=== PATIENT | female | born 1955 | race American Indian/Alaskan Native ===

== ENCOUNTER 2018-07-23 19:28 | Inpatient (IN) | payer MEDICARE, MEDICAID ==
[2018-07-23 19:58] VITALS: BMI 31.1
[2018-07-23 21:27] LABS: BASO % 0.3 % (0.0-2.0); EOS # 0.1 K/uL (0.0-0.7); EOS % 3.3 % (0.0-4.0); HEMOGLOBIN 10.4 g/dL (11.0-16.0); LYMPH # 1.4 K/uL (1.0-4.3); LYMPH % 47.6 % (20.0-40.0); MEAN CORPUSCULAR HEMOGLOBIN 28.4 pg (27.0-31.0); MEAN PLATELET VOLUME 8.6 fL (7.2-11.7); MONO # 0.4 K/uL (0.0-0.8); MONO % 12.8 % (0.0-10.0); NEUT # 1.1 K/uL (1.8-7.0); NRBC % 0.1 % (0.0-2.0); RBC 3.67 Mil/uL (3.80-5.20)
--- NOTE | 2018-07-23 21:28 | C.PDOC ---
History Of Present Illness 63 year old female presents prescreened for xanax detox. Patient has been on a methadone program for 42 years and has been on xanax for many years, prescribed by her doctor to help her deal with the grief of her son's but states her doctor lost his license so she wants to detox. Denies any use of illicit drugs. Time Seen by Provider: 07/23/18 20:51 Chief Complaint (Nursing): Substance Abuse History Per: Patient History/Exam Limitations: no limitations Onset/Duration Of Symptoms: Hrs Current Symptoms Are (Timing): Still Present Recent travel outside of the [place]: No Past Medical History Reviewed: Historical Data, Nursing Documentation, Vital Signs Vital Signs: Last Vital Signs Temp 98.1 F 07/23/18 19:58 Pulse 62 07/23/18 19:58 Resp 19 07/23/18 19:58 BP 194/96 H 07/23/18 19:58 Pulse Ox 97 07/23/18 19:58 Primary Care Provider: Non [facility] Provider, - Medical History PMH: CHF, COPD, Dementia, HTN, Hyperlipidemia, Seizures Surgical History: Cholecystectomy Family History: States: Unknown Family Hx - Social History Hx Alcohol Use: No Hx Substance Use: Yes (xanax) - Immunization History Hx Tetanus Toxoid Vaccination: No Hx Influenza Vaccination: No Hx Pneumococcal Vaccination: No Review Of Systems Constitutional: Negative for: Fever, Chills Cardiovascular: Negative for: Chest Pain, Palpitations Respiratory: Negative for: Cough, Shortness of Breath Gastrointestinal: Negative for: Nausea, Vomiting Neurological: Negative for: Weakness, Numbness Physical Exam - Physical Exam Appears: Non-toxic Skin: Normal Color, Warm Head: Atraumatic, Normacephalic Eye(s): bilateral: Normal Inspection Oral Mucosa: Moist Neck: Normal, Supple Chest: Symmetrical, No Tenderness Cardiovascular: Rhythm Regular Respiratory: Normal Breath Sounds, No Rales, No Rhonchi, No Wheezing Gastrointestinal/Abdominal: Soft, No Tenderness Neurological/Psych: Oriented x3, Normal Speech ED Course And Treatment - Laboratory Results Result Diagrams: 07/23/18 21:20 07/23/18 21:20 Lab Interpretation: Abnormal (WBC 3.0, Hgb 10.4, plt 95, K+ 2.9, BUN 32, Cr 2.0, ETOH <10 UDS + benzos and methadone.) O2 Sat by Pulse Oximetry: 97 (Room air) Pulse Ox Interpretation: Normal Progress Note: Blood work and urinalysis ordered. Low K+ treated with oral Kdur. Patient is medically cleared for detox admission Reevaluation Time: 23:29 Reassessment Condition: Unchanged Disposition - Disposition Disposition: HOSPITALIZED Disposition Time: 23:47 Condition: STABLE - POA Present On Arrival: None - Clinical Impression Clinical Impression: Benzodiazepine dependence - Scribe Statement The provider has reviewed the documentation as recorded by the Scribdaniel Stokes All medical record entries made by the Beckyibdaniel were at my direction and personally dictated by me. I have reviewed the chart and agree that the record accurately reflects my personal performance of the history, physical exam, medical decision making, and the department course for this patient. I have also personally directed, reviewed, and agree with the discharge instructions and disposition.
[2018-07-23 21:41] LABS: ALB/GLOB RATIO 0.9 (1.0-2.1); ALBUMIN 3.2 g/dL (3.5-5.0); ALT/SGPT 61 U/L (9-52); AST/SGOT 124 U/L (14-36); BLOOD UREA NITROGEN 32 mg/dL (7-17); CALCIUM 8.3 mg/dl (8.6-10.4); GFR NON-AFRICAN AMERICAN 25
[2018-07-23] MEDS ORDERED: Potassium Chloride 20 mEq ER Tab PO STA (22:06)
[2018-07-23] MEDS ORDERED: Potassium Chloride 20 mEq ER Tab PO ONE (22:43)
[2018-07-23 23:38] LABS: BARBITURATES, UR NEGATIVE (NEGATIVE); OPIATES, UR NEGATIVE (NEGATIVE); PHENCYCLIDINE, UR NEGATIVE (NEGATIVE)
[2018-07-23 23:55] LABS: BENZODIAZEPINES, UR POSITIVE (NEGATIVE)
[2018-07-24 01:09] LABS: SQUAMOUS EPITHIAL 1 /hpf (0-5); URINE BILIRUBIN NEGATIVE (NEGATIVE); URINE BLOOD TRACE (NEGATIVE); URINE CLARITY Clear (Clear); URINE COLOR YELLOW (YELLOW); URINE GLUCOSE (UA) NEGATIVE (Normal); URINE LEUKOCYTE ESTERASE TRACE Leu/uL (Negative); URINE PROTEIN 2+ mg/dL (NEGATIVE); URINE UROBILINOGEN Normal mg/dL (0.2-1.0)
--- NOTE | 2018-07-24 02:07 | PCM.BM ---
<Rui Watts - Last Filed: 07/24/18 02:04> Treatment Plan Problems - Problems identified on initial assessmt Abnormal Vital Sign Date Initiated: 07/24/18 Time Initiated: 03:00 Assessment reference: NA Status: Active Ineffective Coping Date Initiated: 07/24/18 Time Initiated: 03:00 Assessment reference: NA Status: Active Low Motivation to Change Date Initiated: 07/24/18 Time Initiated: 03:00 Assessment reference: NA Status: Active Treatment assets and liabiliti Patient Assests: cooperative, ADL independent, good support system, negotiates basic needs Patient Liabilities: substance abuse - Milieu Protocol Maintain good personal hygiene: daily Encourage regular showers, daily Remind patient to perform daily oral care, daily Assist patient to perform ADL's Conduct patient checks and document Observation sheet: Q15 minutes Maintain personal safety: every shift Educate patient to report safety concerns to staff, every shift Monitor environment for contraband/sharps Medication safety: Monitor for expected outcome, potential side effects: every shift, Assess barriers to learning: every shift, Assess readiness for medication education: every shift <Jeremie Gomez - Last Filed: 07/24/18 13:37> - Diagnosis (1) Benzodiazepine dependence Status: Acute Interventions: 07/24/18 13:37 * Assess 7x/week regarding severity of withdrawal * Educate regarding risks, benefits, side effects and alternatives of medications * Use Motivational Interviewing for abstinence * Use CBT for relapse prevention * Medication management for withdrawal symptoms * Encourage medication assisted treatment *
[2018-07-24] MEDS: NIFEdipine 90 mg ER Tab PO SCH (11:00)
--- NOTE | 2018-07-24 13:04 | PCM.PSYCH ---
Initial Psychiatric Evaluation - Initial Psychiatric Evaluation Type of Admission: Voluntary Legal Status: Capacity Chief Complaint (in patient's own words): "I am sick" History of Present Illness and Precipitating Events: She is seen, chart reviewed, case discussed. Patient is a 63 year-old, female, who is single, unemployed, and lives alone in a Rooming House in [place], [place]. She has one living child, a daughter who she has a good relationship with, and six grandchildren. Her only two sons have both , one from a bullet wound in 2010 and one from a suspected overdose of fentanyl in December 2017. She presents to [facility] in order to detox from benzodiazepines. She admits to using Xanax for the past 40 years and currently takes approximately 6 mg daily. She states that during her 30s she was introduced to benzodiazepines, using Valium, Ativan, and Xanax. The last time she used was yesterday, when she took Klonopin from a friend in the workers compensation claims supervisor. She had been prescribed Xanax for her anxiety but has been obtaining it illicitly for the past year. She reports that she has a personal history of withdrawal seizures and frequently experiences seizures during her sleep. Her last seizure was Sunday07/17/18. She was given dilantin and at one point phenobarb but she is non-compliant due to fear of side-effects. Currently her CIWA is 1+1+1+4+0+1+2+3+1+1 = 15 and she will be started on ativan taper. 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 She has been taking methadone for the past 40 years, and is currently on 80mg daily according to her clinic, [facility] in [place], [place]. She is a current every day smoker, smoking up to 1 ppd. She denies any alcohol use or the use of any other illicit substances. She admits to opioid overdoses in the past, with the most recent episode in the year 1999. She reports one prior detox treatment over 20 years ago at [facility], but states that she has not been sober for any extended period of time. She is interested in going to an inpatient rehab after her detox is complete, if she can. She feels very depressed but not suicidal. Has severe anxiety as well. Past Psychiatric History: depression and anxiety, she had one suicide attempt by mixing drugs and Xanax Family Psych History: All family members but mother had issues with addiction. Past Medical History: hypertension, COPD, multiple sclerosis, seizures, renal failure 2/2 HTN, gout, overactive bladder Past Surgical History: denies Current Medications: Active Medications Generic Name Dose Route Start Last Admin Trade Name Freq PRN Reason Stop Dose Admin Aspirin 81 mg 07/24/18 10:15 07/24/18 11:28 Aspirin Chewable PO 81 mg DAILY LELA Administration Clonidine HCl 0.1 mg 07/24/18 03:59 Catapres PO Q6 PRN s/sx of withdrawal cows=5 Clonidine HCl 0.3 mg 07/24/18 10:15 07/24/18 11:22 Catapres PO 0.3 mg BID LELA Administration Dicyclomine HCl 10 mg 07/24/18 04:01 Bentyl PO Q6 PRN Muscle spasm Hydralazine HCl 25 mg 07/24/18 10:15 07/24/18 11:20 Apresoline PO 25 mg DAILY LELA Administration Hydroxyzine HCl 25 mg 07/24/18 04:03 Atarax PO Q6 PRN Anxiety Lisinopril 10 mg 07/24/18 10:15 07/24/18 11:28 Zestril PO 10 mg DAILY LELA Administration Lorazepam 1 mg 07/24/18 10:35 Ativan PO Q4H PRN Symptoms of alcohol withdrawl Lorazepam 2 mg 07/24/18 12:00 07/24/18 12:15 Ativan PO 07/29/18 11:59 2 mg Q8H LELA Administration Taper Memantine 5 mg 07/24/18 10:15 07/24/18 11:23 Namenda PO 5 mg DAILY LELA Administration Methadone HCl 80 mg 07/24/18 10:00 07/24/18 11:21 Methadone PO 80 mg DAILY LELA Administration Nifedipine 90 mg 07/24/18 10:15 07/24/18 11:00 Procardia Xl PO 90 mg DAILY LELA Administration Oxybutynin Chloride 5 mg 07/24/18 14:00 Ditropan Xl PO QID LELA Phenytoin Sodium 100 mg 07/24/18 10:00 07/24/18 11:22 Dilantin PO 100 mg TID LELA Administration Past Psychiatric History - Past Psychiatric History Previous Treatment History: Intensive Outpatient Pertinent Medical Hx (Current Medical&Sleep Prob, Allergies): Allergies Allergy/AdvReac Type Severity Reaction Status Date / Time Penicillins Allergy Verified 07/23/18 19:57 Albuterol HFA [Ventolin HFA 90 mcg/actuation (8 g)] 2 puff IH Q4 PRN 07/23/18 Allopurinol [Zyloprim] 100 mg PO BID 07/23/18 Aspirin [Aspirin Chewable] 81 mg PO DAILY 07/23/18 Azelastine HCl 137 mcg NS BID PRN 07/23/18 Azithromycin [Zithromax] 250 mg PO DAILY 07/23/18 Cholecalciferol [Vitamin D] 5,000 iu PO DAILY 07/23/18 Docusate [Colace] 100 mg PO DAILY 07/23/18 Escitalopram [Lexapro] 20 mg PO DAILY 07/23/18 Fluticasone Propion/Salmeterol [Fluticasone-Salmeterol 250-50] 1 each IH BID 07/23/18 Insulin Detemir [Levemir] 100 unit SC HS 07/23/18 Lisinopril [Zestril] 10 mg PO DAILY 07/23/18 Loperamide [Loperamide HCl] 2 mg PO BID PRN 07/23/18 Magnesium Oxide [Magnesium] 400 mg PO BID 07/23/18 Meloxicam [Mobic] 15 mg PO DAILY 07/23/18 Memantine [Namenda] 5 mg PO DAILY 07/23/18 Methylprednisolone 4 mg PO DAILY 07/23/18 NIFEdipine ER [Procardia XL] 90 mg PO DAILY 07/23/18 Ondansetron [Zofran] 4 mg PO Q8 PRN 07/23/18 Oxybutynin Chloride [Ditropan Xl] 5 mg PO QID 07/23/18 Potassium Chloride 20 meq PO DAILY 07/23/18 cloNIDine [Catapres] 0.3 mg PO TID 07/23/18 hydrALAZINE [hydralazine Hydrochloride] 25 mg PO DAILY 07/23/18 hydrOXYzine Pamoate [Vistaril] 50 mg PO Q8 PRN 07/23/18 oxyCODONE/Acetaminophen [Percocet 5/325 mg Tab] 1 tab PO Q4 PRN 07/23/18 Review of Systems - Psychiatric Psychiatric: Abnormal Sleep Pattern, Anhedonia, Anxiety, Behavioral Changes, Change in Appetite, Confusion, Depression, Difficulty Concentrating, Hopelessness, Irritability, Mood Swings, Panic Attacks. absent: Hallucinations, Homicidal Ideation, Paranoia, Suicidal Ideation Mental Status Examination - Personal Presentation Personal Presentation: Looks stated age - Affect Affect: Constricted - Motor Activity Motor Activity: Other (restless) - Reliability in Providing Information Reliability in Providing Information: Fair - Speech Speech: Other - Mood Mood: Depressed, Anxious - Formal Thought Process Formal Thought Process: No Impairment - Cognitive Functions Orientation: Person, Place, Situation, Time Sensorium: Alert Attention/Concentration: Easily distracted Abstract Thinking: [place] Estimate of Intelligence: Below average Judgement: Intact, as evidence by: Insight regarding need for hospitalization Memory: Recent intact, as evidence by: Ability to recall events of the day, Remote impaired as evidenced by: Inability to recall sig life events - Risk Risk: Seizure, Withdrawal, Diminished functioning - Strength & Assets Inventory Strength & Assets Inventory: Cooperative DSM 5 DX - DSM 5 DSM 5 Diagnosis: 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 Attend groups and activities Supportive therapy and psychoeducation [place] for abstinence CBT for relapse prevention Encourage MAT Refer to rehab or IOP, and self-help groups Teach healthy lifestyle methods, i.e. diet, exercise, meditation Smoking cessation with [place] Nicotine patch if needed 34 min Projected ELOS: 6 days - Smoking Cessation Smoking Cessation Initiated: Yes
[2018-07-24 18:06] LABS: BASO % 0.5 % (0.0-2.0); EOS # 0.1 K/uL (0.0-0.7); EOS % 2.7 % (0.0-4.0); HEMOGLOBIN 10.2 g/dL (11.0-16.0); LYMPH # 1.3 K/uL (1.0-4.3); LYMPH % 48.4 % (20.0-40.0); MEAN CORPUSCULAR HEMOGLOBIN 28.1 pg (27.0-31.0); MEAN CORPUSCULAR HGB CONC 33.5 g/dL (33.0-37.0); MONO # 0.3 K/uL (0.0-0.8); MONO % 12.7 % (0.0-10.0); NEUT % 35.7 % (50.0-75.0); NRBC % 0.5 % (0.0-2.0); RBC 3.61 Mil/uL (3.80-5.20); RED CELL DISTRIBUTION WIDTH 15.7 % (11.5-14.5); WHITE BLOOD COUNT 2.7 K/uL (4.8-10.8)
[2018-07-24 18:17] LABS: ALB/GLOB RATIO 0.9 (1.0-2.1); ALBUMIN 3.1 g/dL (3.5-5.0)
[2018-07-24] MEDS ORDERED: Albuterol HFA 90 mcg/actuation (8 g) INH PRN (19:45)
[2018-07-25] MEDS: Pantoprazole 40 mg EC Tab PO SCH (10:18)
[2018-07-25] MEDS: NIFEdipine 90 mg ER Tab PO SCH (10:50)
[2018-07-25] MEDS: Albuterol 0.083% Inhal Sol (2.5 mg/3 mL) UD INH PRN (14:42)
--- NOTE | 2018-07-25 17:14 | PCM.PYCHPN ---
Psychiatric Progress Note - Psychiatric Progress Note Patient seen today, length of contact: 18 min Patient Chief Complaint: "I am not well at all" Problems Identified/Issues Discussed: The pt is seen again, chart reviewed, and case is discussed with the team. The pt denies any side-effects from meds. Attends few activities and groups, brief individual therapy provided Not ready for discharge due to ongoing symptoms and high relapse risk. After care discussed again. But she is mostly preoccupied with somatic problems and issues She claims she needs a bipsy on her head maybe brain (?) She has a very small lump above her left eyebrow and she claims it is a serious issues (she hit her head w/o uncons. prior to admission) Medication Change: Yes (detox changes daily) Medical Record Reviewed: Yes Mental Status Examination - Cognitive Function Orientation: Person, Place, Situation, Time Memory: Intact Attention: WNL Concentration: Poor Association: WNL Fund of Knowledge: WNL - Mood Mood: Depressed, Anxious - Affect Affect: Constricted - Speech Speech: Appropriate - Formal Thought Process Formal Thought Process: No Impairment - Suicidal Ideation Suicidal Ideation: No - Homicidal Ideation Homicidal Ideation: No Goal/Treatment Plan - Goal/Treatment Plan Need for Continued Stay: Discharge may exacerbated symptoms, Severe functional impairment Progress Toward Problem(s) and Goals/Treatment Plan: Taper with ativan Continue Methadone maintenance at 80 mg Resume dilantin to prevent seizures Resume other meds but help asked from medicine due to the complexity other medical conditions As needed medications All risks, benefits and alternatives of the meds discussed, and the pt agreed and understood. Attend groups and activities Supportive therapy and psychoeducation [place] for abstinence CBT for relapse prevention Encourage MAT Refer to rehab or IOP, and self-help groups Teach healthy lifestyle methods, i.e. diet, exercise, meditation Smoking cessation with [place] Nicotine patch if needed
[2018-07-25] MEDS ORDERED: Potassium Chloride 20 mEq ER Tab PO ONE (18:00)
--- NOTE | 2018-07-26 08:43 | PCM.PYCHPN ---
Psychiatric Progress Note - Psychiatric Progress Note Patient seen today, length of contact: 22 min Patient Chief Complaint: "I am angry" Problems Identified/Issues Discussed: The pt is seen again, chart reviewed, and case is discussed with the team. She is still extremely somatically preoccupied Train Operations Manager asked Dr. Weber to see her and he said OK She picks arguments with everyone, nurses, other staff and patients but then blames them of starting it or misunderstanding her. Support given and how to stay away from conflict discussed No SEs from meds Detox is ongoing and she is to be d/c'ed on Sunday Medication Change: Yes (detox changes daily) Medical Record Reviewed: Yes Mental Status Examination - Cognitive Function Orientation: Person, Place, Situation, Time Memory: Intact Attention: WNL Concentration: Poor Association: WNL Fund of Knowledge: WNL - Mood Mood: Depressed, Anxious - Affect Affect: Constricted - Speech Speech: Appropriate - Formal Thought Process Formal Thought Process: No Impairment - Suicidal Ideation Suicidal Ideation: No - Homicidal Ideation Homicidal Ideation: No Goal/Treatment Plan - Goal/Treatment Plan Need for Continued Stay: Discharge may exacerbated symptoms, Severe functional impairment Progress Toward Problem(s) and Goals/Treatment Plan: Taper with ativan Continue Methadone maintenance at 80 mg Resume dilantin to prevent seizures Resume other meds but help asked from medicine due to the complexity other medical conditions As needed medications All risks, benefits and alternatives of the meds discussed, and the pt agreed and understood. Attend groups and activities Supportive therapy and psychoeducation [place] for abstinence CBT for relapse prevention Encourage MAT Refer to rehab or IOP, and self-help groups Teach healthy lifestyle methods, i.e. diet, exercise, meditation Smoking cessation with [place] Nicotine patch if needed
[2018-07-26] MEDS: Pantoprazole 40 mg EC Tab PO SCH (09:57)
[2018-07-26] MEDS: NIFEdipine 90 mg ER Tab PO SCH (10:01)
[2018-07-27] MEDS: Pantoprazole 40 mg EC Tab PO SCH (09:27)
[2018-07-27] MEDS: NIFEdipine 90 mg ER Tab PO SCH (09:27)
[2018-07-27] MEDS: Albuterol 0.083% Inhal Sol (2.5 mg/3 mL) UD INH PRN (13:24)
--- NOTE | 2018-07-27 19:43 | PCM.PYCHPN ---
Psychiatric Progress Note - Psychiatric Progress Note Patient seen today, length of contact: 18 min Problems Identified/Issues Discussed: Patient was seen and chart was reviewed. Case was discussed with treatment team. Issues related to the illness and treatments were discussed with the patient, and issues related to illness and treatments were discussed with the patient and staff. Patient reported compliance with treatment and no adverse effects from the medications were reported. Patient is tolerating treatment well at this time. Patient denies any withdrawal symptoms such as body aches, sweating, nausea, decreased sleep or headaches at this time. Patient reports mood as improved, affect is congruent with mood. Aftercare was discussed with patient and he verbalized understanding. Patient denies any delusions, auditory/visual hallucinations, or perceptual disturbances. Patient also denies any suicidal or homicidal ideation/plan/intent at this time. Medication Change: Yes (detox changes daily) Medical Record Reviewed: Yes Mental Status Examination - Cognitive Function Orientation: Person, Place, Situation, Time Memory: Intact Attention: WNL Concentration: Poor Association: WNL Fund of Knowledge: WNL - Mood Mood: Depressed, Anxious - Affect Affect: Constricted - Speech Speech: Appropriate - Formal Thought Process Formal Thought Process: No Impairment - Suicidal Ideation Suicidal Ideation: No - Homicidal Ideation Homicidal Ideation: No Goal/Treatment Plan - Goal/Treatment Plan Need for Continued Stay: Remain at risks for inpatient hospitalization, Discharge may exacerbated symptoms, Severe functional impairment Progress Toward Problem(s) and Goals/Treatment Plan: Continue medications Support and psychoeducation daily Attend groups and activities daily Individual therapy After care planning by SHU and the team - Smoking Cessation Smoking Cessation Initiated: No Reason for not providing: Patient is a non-smoker
[2018-07-28] MEDS: Pantoprazole 40 mg EC Tab PO SCH (10:11)
[2018-07-28] MEDS: NIFEdipine 90 mg ER Tab PO SCH (10:11)
[2018-07-28] MEDS: Albuterol 0.083% Inhal Sol (2.5 mg/3 mL) UD INH PRN (19:58)
[2018-07-29 09:08] VITALS: BP 157/87; PULSE 67; RESP 18; TEMP 98; O2SAT 99
[2018-07-29] MEDS: Pantoprazole 40 mg EC Tab PO SCH (09:33)
[2018-07-29] MEDS: NIFEdipine 90 mg ER Tab PO SCH (09:33)
--- NOTE | 2018-07-29 10:19 | PCM.PYCHDC ---
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 Reason for request. 2. Findings. 3. Follow-up Summary of Hospital Course include:: 1. Description of specific treatment plan utilized for patients during their course of treatmen. 2. Summarize the time- course for resolution of acute symptoms and/or regressed behaviors. 3. Describe issues identified and worked on during hospitalization. 4. Describe medication utilized. 5. Describe medical problems identified and treated. 6. Reassessment of suicide risk Summary of Hospital Course: The pt was admitted and started on treatment with psychotherapy, support, psychoeducation and medications. All the risks and benefits of medications are discussed and the patient understood and agreed. [place] and CBT used. The pt attended groups and activities, as well as milieu therapy. The pt improved with the treatments provided. After care discussed with the patient. - Final Diagnosis (DSM 5) Condition upon Discharge: STABLE Disposition: HOME/ ROUTINE Follow-up Treatment Plan: Continue with all home medications after discharge. Follow after care plan as discussed. Use relapse prevention skills Return to ER or call 911 if suicidal, homicidal or symptoms relapse. Stay away from stress, alcohol and drugs. See primary doctor regularly and get labs. - Smoking Cessation Smoking Cessation Medication prescribed: No - Antipsychotic Medications Pt discharged on 2 or more routine antipsychotic medications: Yes
== END 2018-07-29 14:12 | disposition home or self-care (01) | DRG 897 ==
LOC: C.ER 19:28 → C.7D 07-24 00:05 → OBSVTOIN 07-24 10:31
PROVIDERS: ADMIT Psychiatry & Neurology Psychiatry; ATTEND Psychiatry & Neurology Psychiatry
PROC: GZHZZZZ Group Psychotherapy (ICD-10-PCS; principal; 2018-07-24)
PROC: GZ56ZZZ Individual Psychotherapy, Supportive (ICD-10-PCS; 2018-07-24)
DX: F13.239 Sedative, hypnotic or anxiolytic dependence with withdrawal, unspecified (principal); F33.2 Major depressive disorder, recurrent severe without psychotic features; I13.0 Hypertensive heart and chronic kidney disease with heart failure and stage 1 through stage 4 chronic kidney disease, or unspecified chronic kidney disease; F11.20 Opioid dependence, uncomplicated; I50.9 Heart failure, unspecified; F03.90 Unspecified dementia, unspecified severity, without behavioral disturbance, psychotic disturbance, mood disturbance, and anxiety; E78.5 Hyperlipidemia, unspecified; F17.200 Nicotine dependence, unspecified, uncomplicated; G35 Multiple sclerosis; F41.9 Anxiety disorder, unspecified; N32.81 Overactive bladder; Z91.19 Patient's noncompliance with other medical treatment and regimen; J44.9 Chronic obstructive pulmonary disease, unspecified; N18.9 Chronic kidney disease, unspecified